=== PATIENT | male | born 1945 | race Caucasian/White ===

== ENCOUNTER 2021-05-08 20:10 | Emergency (ER) | payer OTHER, MEDICAID ==
[~2021-05-08] VITALS: Ht 170.2 cm; Wt 81.6 kg
[2021-05-08 20:20] VITALS: BP_SYST 133
[2021-05-08 20:48] LABS: BILIRUBIN,URINE NEGATIVE (NEGATIVE); BLOOD, URINE 3+ (NEGATIVE); CLARITY/URINE SL CLOUDY (CLEAR); COLOR,URINE RED (YELLOW); GLUCOSE,URINE NEGATIVE (NEGATIVE); KETONES,URINE TRACE (NEGATIVE); LEUKOCYTE ESTERASE ,URINE 2+ (NEGATIVE); NITRITE, URINE POSITIVE (NEGATIVE); PH,URINE 6.5 (5.0-8.0); PROTEIN URINE 3+ (NEGATIVE)
[2021-05-08 20:59] LABS: BACTERIA,URINE MODERATE /HPF (None Seen); RBC,URINE >100 /HPF (0-3)
[2021-05-08 21:00] LABS: MUCUS,URINE None Seen /LPF (None Seen)
[2021-05-08 21:11] LABS: BASOPHILS # (AUTO) 0.1 K/uL (0.0-0.2); BASOPHILS % (AUTO) 0.5 % (0.0-2.0); EOSINOPHILS # (AUTO) 0.2 K/uL (0.0-0.4); EOSINOPHILS % (AUTO) 1.9 % (0.0-4.0); HEMATOCRIT 39.5 % (36-54); HEMOGLOBIN 13.7 g/dL (14.0-18.0); LYMPHOCYTES # (AUTO) 3.2 K/uL (1.0-5.5); LYMPHOCYTES % (AUTO) 30.2 % (20.5-51.5); MEAN CORPUSCULAR HEMOGLOBIN 35 pg (27-31); MEAN CORPUSCULAR HGB CONC 35 % (32-36); MEAN CORPUSCULAR VOLUME 102 fL (79.0-98.0); MONOCYTES # (AUTO) 1.3 K/uL (0.0-1.0); MONOCYTES % (AUTO) 11.7 % (1.7-9.3); NEUTROPHILS # (AUTO) 5.9 K/uL (1.8-7.7); NEUTROPHILS % (AUTO) 55.7 % (40.0-70.0); PLATELET COUNT (AUTO) 207 K/uL (130-430); RED BLOOD CELL COUNT(AUTO) 3.88 MIL/uL (4.2-6.2); RED CELL DISTRIBUTION WIDTH 13.8 % (9.0-15.0); WHITE BLOOD COUNT (AUTO) 10.7 K/uL (4.8-10.8)
[2021-05-08 21:15] LABS: ANION GAP 10 (5-15); CALCIUM 8.7 mg/dL (8.4-11.0); CHLORIDE 104 mmol/L (98-107); CREATININE 0.89 mg/dL (0.55-1.30); GLUCOSE 93 mg/dL (70-99); POTASSIUM 3.6 mmol/L (3.5-5.1); SODIUM SERUM 138 mmol/L (136-145); UREA NITROGEN, BLOOD 4 mg/dL (8-21)
[2021-05-08 21:19] LABS: INR 1.1 (0.80-1.20)
[2021-05-08 21:20] LABS: ALANINE AMINOTRANSFERASE 53 U/L (12-78); ALBUMIN 2.9 g/dL (3.4-4.8); ASPARTATE AMINOTRANSFERASE 80 U/L (10-37); LIPASE 109 U/L (73-393); TOTAL BILIRUBIN 0.6 mg/dL (0.0-1.0)
[2021-05-08] MEDS ORDERED: CIPROFLOXACIN HCL 500 MG TABLET PO ONE (21:30)
[2021-05-08] MEDS ORDERED: cefTRIAXone 1 GM in D5W 50 ML IV ONE (21:30)
[2021-05-08] MEDS ORDERED: cefTRIAXone 1 GM in LIDOCAINE 1%, 20 ML MDV 2.1 ML IM ONE (21:45)
[2021-05-08] MEDS ORDERED: CIPR500T5 PO (21:55)
[2021-05-08] MEDS ORDERED: PHEN-726 PO (21:59)
[2021-05-08 22:10] VITALS: BP_SYST 133
== END 2021-05-08 22:10 | disposition home or self-care (01) ==
LOC: SED 20:10
DX: N32.89 Other specified disorders of bladder (principal); N39.0 Urinary tract infection, site not specified; I10 Essential (primary) hypertension; Z79.899 Other long term (current) drug therapy
CPT/HCPCS: 36415; 74176; 76376; 80053; 81000; 83690; 85025; 85610; 85730; 87086; 96372; 99284; J0696; J2001